=== PATIENT | female | born 1965 | race Caucasian/White ===

== ENCOUNTER 2017-05-25 16:28 | Emergency (ER) | payer BC ==
[~2017-05-25] VITALS: Ht 167.6 cm; Wt 58.1 kg
[2017-05-25] MEDS ORDERED: HYDROcodone/APAP 10/325 1 TAB TABLET PO ONE (17:30)
[2017-05-25 17:38] LABS: BASO # 0.1 x10^3/uL (0.0-0.2); BASO % 1 % (0-3); EOS % 2 % (0-3); HEMATOCRIT 40.7 % (36.0-47.0); HEMOGLOBIN 13.3 g/dL (12.0-15.5); LYMPH # 2.4 x10^3/uL (1.0-4.8); LYMPH % 16 % (24-48); MEAN CORPUSCULAR HEMOGLOBIN 33 pg (25-35); MEAN CORPUSCULAR HGB CONC 33 g/dL (31-37); MEAN CORPUSCULAR VOLUME 101 fL (79-100); MONO % 7 % (0-9); NEUT % 75 % (31-73); PLATELET COUNT 262 x10^3/uL (140-400); RED BLOOD COUNT 4.02 x10^6/uL (3.50-5.40); RED CELL DISTRIBUTION WIDTH 12.8 % (11.5-14.5); WHITE BLOOD COUNT 15.3 x10^3/uL (4.0-11.0)
[2017-05-25 17:46] LABS: CALCIUM 8.4 mg/dL (8.5-10.1); CREATININE 0.9 mg/dL (0.6-1.0); GFR 66.3; POTASSIUM 3.4 mmol/L (3.5-5.1)
[2017-05-25 17:51] LABS: ALBUMIN 3.5 g/dL (3.4-5.0); TOTAL BILIRUBIN 0.3 mg/dL (0.2-1.0)
--- NOTE | 2017-05-25 18:06 | RAD ---
EXAM: Right lower extremity arterial Doppler. HISTORY: Right groin pain after catheterization. Assess for pseudoaneurysm. COMPARISON: None. FINDINGS: Grayscale and Doppler analysis of the right inguinal vasculature was performed. There is no evidence of hematoma, pseudoaneurysm or arteriovenous fistula. IMPRESSION: 1. No complication is identified. Electronically signed by: Linnea Rob MD (05/25/2017 6:03 PM)
--- NOTE | 2017-05-25 18:24 | ED.ADGEN ---
Past Medical History Past Medical History: High Cholesterol, Other Additional Past Medical Histor: INERSTITIAL CYSTITIS Past Surgical History: Appendectomy, , Tonsillectomy Additional Past Surgical Histo: HERNIA Alcohol Use: None Drug Use: None Adult General Chief Complaint Chief Complaint: POST-OP PROBLEM HPI HPI Patient is a 51 year old female presents with right sharp groin pain after undergoing diagnostic heart catheter yesterday per Dr. Antoine Lincoln. Patient denies pain at the location of femoral artery at time of discharge, but reports are to severe sharp right groin pain this afternoon all at work. Patient also reports numbness around wound site. Patient was seen a PCP and referred to the ED for further evaluation. Heart catheter was reportedly negative. Review of Systems Review of Systems Review of symptoms as per history of present illness. All other review of symptoms are negative. Current Medications Current Medications Current Medications Medications (Trade) Dose Ordered Sig/Shelley Start Time Stop Time Status Last Admin Dose Admin Acetaminophen/ Hydrocodone Bitart (Lortab 10/325) 1 tab 1X ONCE 05/25/17 17:30 05/25/17 17:31 DC 05/25/17 17:36 1 TAB Allergies Allergies Allergies Coded Allergies Type Severity Reaction Last Updated Verified No Known Drug Allergies 01/30/15 No Physical Exam Physical Exam Constitutional: Well developed, well nourished, no acute distress, non-toxic appearance. [] HENT: Normocephalic, atraumatic, bilateral external ears normal, oropharynx moist, no oral exudates, nose normal. [] Eyes: PERRLA, EOMI, conjunctiva normal, no discharge. [] Neck: Normal range of motion, no tenderness, supple, no stridor. [] Cardiovascular:Heart rate regular rhythm, no murmur [] Lungs & Thorax: Bilateral breath sounds clear to auscultation [] Abdomen: Bowel sounds normal, soft, no tenderness, no masses, no pulsatile masses. [] Skin: Warm, dry, no erythema, no rash. [] Back: No tenderness, no CVA tenderness. [] Extremities: Groin, femoral artery, 2+ pulse bilaterally, right groin pollens widened compared to left. Right groin, no hematoma or bruising. Bleeding or swelling at surgical site. Neurologic: Alert and oriented X 3, normal motor function, normal sensory function, no focal deficits noted. [] Psychologic: Affect normal, judgement normal, mood normal. [] Current Patient Data Vital Signs Vital Signs Date Time Temp Pulse Resp B/P (MAP) Pulse Ox O2 Delivery O2 Flow Rate FiO2 05/25/17 18:49 67 20 153/66 (95) 98 05/25/17 16:44 98.6 Room Air 98.6 Lab Values Laboratory Tests Test 05/25/17 17:30 White Blood Count 15.3 x10^3/uL (4.0-11.0) H Red Blood Count 4.02 x10^6/uL (3.50-5.40) Hemoglobin 13.3 g/dL (12.0-15.5) Hematocrit 40.7 % (36.0-47.0) Mean Corpuscular Volume 101 fL (79-100) H Mean Corpuscular Hemoglobin 33 pg (25-35) Mean Corpuscular Hemoglobin Concent 33 g/dL (31-37) Red Cell Distribution Width 12.8 % (11.5-14.5) Platelet Count 262 x10^3/uL (140-400) Neutrophils (%) (Auto) 75 % (31-73) H Lymphocytes (%) (Auto) 16 % (24-48) L Monocytes (%) (Auto) 7 % (0-9) Eosinophils (%) (Auto) 2 % (0-3) Basophils (%) (Auto) 1 % (0-3) Neutrophils # (Auto) 11.4 x10^3uL (1.8-7.7) H Lymphocytes # (Auto) 2.4 x10^3/uL (1.0-4.8) Monocytes # (Auto) 1.0 x10^3/uL (0.0-1.1) Eosinophils # (Auto) 0.4 x10^3/uL (0.0-0.7) Basophils # (Auto) 0.1 x10^3/uL (0.0-0.2) Sodium Level 142 mmol/L (136-145) Potassium Level 3.4 mmol/L (3.5-5.1) L Chloride Level 105 mmol/L (98-107) Carbon Dioxide Level 29 mmol/L (21-32) Anion Gap 8 (6-14) Blood Urea Nitrogen 10 mg/dL (7-20) Creatinine 0.9 mg/dL (0.6-1.0) Estimated GFR (Cockcroft-Gault) 66.3 BUN/Creatinine Ratio 11 (6-20) Glucose Level 104 mg/dL (70-99) H Calcium Level 8.4 mg/dL (8.5-10.1) L Total Bilirubin 0.3 mg/dL (0.2-1.0) Aspartate Amino Transferase (AST) 21 U/L (15-37) Alanine Aminotransferase (ALT) 23 U/L (14-59) Alkaline Phosphatase 73 U/L (46-116) Total Protein 7.0 g/dL (6.4-8.2) Albumin 3.5 g/dL (3.4-5.0) Albumin/Globulin Ratio 1.0 (1.0-1.7) Laboratory Tests 05/25/17 17:30 Laboratory Tests 05/25/17 17:30 EKG EKG [] Radiology/Procedures Radiology/Procedures [] Course & Med Decision Making Course & Med Decision Making Pertinent Labs and Imaging studies reviewed. (See chart for details) [Ultrasound performed and reviewed. Dr Lincoln in the ED for evaluation disposition. Courtesy discharge instructions provided. Dragon Disclaimer Dragon Disclaimer This electronic medical record was generated, in whole or in part, using a voice recognition dictation system. CORI BABIN DO May 25, 2017 18:24
[2017-05-25 19:43] VITALS: BP 137/90
== END 2017-05-25 19:47 | disposition home or self-care (01) ==
LOC: ER 16:28
DX: R10.30 Lower abdominal pain, unspecified (principal); R20.0 Anesthesia of skin; E78.00 Pure hypercholesterolemia, unspecified; Z90.49 Acquired absence of other specified parts of digestive tract; Z98.890 Other specified postprocedural states
CPT/HCPCS: 36415; 80053; 85027; 93926; 99285-25